=== PATIENT | male | born 1965 | race Caucasian/White ===

== ENCOUNTER 2016-09-09 08:52 | Observation (INO) | payer MEDICARE, OTHER ==
[~2016-09-09] VITALS: Ht 175.3 cm; Wt 88.5 kg
[~2016-09-09 08:52] MED LIST: ASPIR 8181 MG PO; BACTRIM DS TAB1 EACH PO; BRILINTA90 MG PO; CORDARONE 200M200 MG PO; COREG 25MG TAB25 MG PO; IMDUR ER TAB 6060 MG PO; LIPITOR TAB 2020 MG PO; NEURONTIN 300300 MG PO; NEURONTIN 400400 MG PO; NITROSTAT0.4 MG SL; PRILOSEC OTC20 MG PO; PROTONIX40 MG PO; STIOLTO RESPIMAT INH; STRIVERDI RESPIM4 GM INH; THEO-24400 MG PO; VITAMIN D35000 UNIT PO; ZESTRIL 40 MG T40 MG PO
[2016-09-09 10:36] LABS: HEMOGLOBIN 14.9 gm/dl (14.0-17.5); RED BLOOD COUNT 5.12 M/UL (4.20-5.50); WHITE BLOOD COUNT 8.7 K/UL (4.5-11.0)
[2016-09-09 10:52] LABS: BUN/CREATININE RATIO 7 (0-10)
[2016-09-09] MEDS ORDERED: FLOMAX 0.4 MG0.4 MG PO (15:29)
[2016-09-09] MEDS ORDERED: VITAMIN C 500500 MG PO (15:33)
[2016-09-09] MEDS ORDERED: SULFAMETHOXAZO1 EACH PO (15:38)
[2016-09-10 03:46] LABS: HEMOGLOBIN 14.2 gm/dl (14.0-17.5); RED BLOOD COUNT 4.97 M/UL (4.20-5.50); WHITE BLOOD COUNT 6.8 K/UL (4.5-11.0)
[2016-09-10 04:09] LABS: BUN/CREATININE RATIO 15 (0-10)
[2016-09-11] MEDS ORDERED: KEFLEX500 MG PO (10:15)
== END 2016-09-11 16:20 | disposition home or self-care (01) ==
LOC: ER1 08:52 → ZEROF 12:51 → PROG CARE 12:51
PROVIDERS: Emergency Medicine; ADMIT Family Medicine
DX: R55 Syncope and collapse (principal); E87.6 Hypokalemia; E11.9 Type 2 diabetes mellitus without complications; E78.5 Hyperlipidemia, unspecified; I11.9 Hypertensive heart disease without heart failure; I25.10 Atherosclerotic heart disease of native coronary artery without angina pectoris; I25.2 Old myocardial infarction; N12 Tubulo-interstitial nephritis, not specified as acute or chronic; J44.9 Chronic obstructive pulmonary disease, unspecified; I27.2 Other secondary pulmonary hypertension; F17.210 Nicotine dependence, cigarettes, uncomplicated; Z79.82 Long term (current) use of aspirin; Z79.899 Other long term (current) drug therapy; Z95.5 Presence of coronary angioplasty implant and graft; Z88.1 Allergy status to other antibiotic agents
CPT/HCPCS: ECHO; 36415; 70450; 71020; 80053; 81001; 82550; 82553; 82962; 83690; 83735; 83880; 84484; 85025; 85027; 85379; 85610; 85730; 87086; 93005; 93306; 93880; 94640; 94664; 96374; 96375; 96376; 99285; G0378; J0696; J2930; J7030; J7040

== ENCOUNTER → 2016-11-01 | Outpatient (CLI) | payer MEDICARE, OTHER ==
[~2016-11-01] MED LIST changes: +FLOMAX 0.4 MG0.4 MG PO; +HYDROCODON-ACE1 EAC4 PO; +KEFLEX500 MG PO; +LEVAQUIN500 MG PO; +RANEXA500 MG PO; +SULFAMETHOXAZO1 EACH PO; +VITAMIN C 500500 MG PO
[2016-11-01 09:40] LABS: HEMOGLOBIN 14.2 gm/dl (14.0-17.5); RED BLOOD COUNT 4.93 M/UL (4.20-5.50); WHITE BLOOD COUNT 9.3 K/UL (4.5-11.0)
[2016-11-01 09:58] LABS: BUN/CREATININE RATIO 10 (0-10)
== END ==
LOC: LAB 08:27
PROVIDERS: Internal Medicine Cardiovascular Disease
DX: I25.10 Atherosclerotic heart disease of native coronary artery without angina pectoris (principal); I10 Essential (primary) hypertension; R55 Syncope and collapse; I25.5 Ischemic cardiomyopathy
CPT/HCPCS: 36415; 80048; 85025

== ENCOUNTER 2016-11-03 08:56 | Outpatient (CLI) | payer MEDICARE, OTHER ==
[~2016-11-03] VITALS: Ht 177.8 cm; Wt 88.9 kg
[~2016-11-03 08:56] MED LIST changes: -HYDROCODON-ACE1 EAC4 PO; -LEVAQUIN500 MG PO; -RANEXA500 MG PO
[2016-11-03] MEDS ORDERED: RANEXA500 MG PO (09:40)
[2016-11-04] MEDS ORDERED: LEVAQUIN500 MG PO (08:49)
[2016-11-04] MEDS ORDERED: HYDROCODON-ACE1 EAC4 PO (08:58)
== END 2016-11-04 09:35 | disposition home or self-care (01) ==
LOC: CATH 08:56 → PROG CARE 12:50 → CATH 11-04 09:35
DX: I11.0 Hypertensive heart disease with heart failure (principal); I50.22 Chronic systolic (congestive) heart failure; I49.8 Other specified cardiac arrhythmias; I47.1 Supraventricular tachycardia; I25.5 Ischemic cardiomyopathy; I25.10 Atherosclerotic heart disease of native coronary artery without angina pectoris; E78.5 Hyperlipidemia, unspecified; E11.9 Type 2 diabetes mellitus without complications; I73.9 Peripheral vascular disease, unspecified; I25.2 Old myocardial infarction; I47.2 Ventricular tachycardia; Z88.3 Allergy status to other anti-infective agents; Z79.82 Long term (current) use of aspirin; Z79.899 Other long term (current) drug therapy; Z95.5 Presence of coronary angioplasty implant and graft; J30.9 Allergic rhinitis, unspecified; I25.119 Atherosclerotic heart disease of native coronary artery with unspecified angina pectoris; M19.90 Unspecified osteoarthritis, unspecified site; J44.9 Chronic obstructive pulmonary disease, unspecified; R09.02 Hypoxemia; G47.33 Obstructive sleep apnea (adult) (pediatric); Z99.89 Dependence on other enabling machines and devices; I27.2 Other secondary pulmonary hypertension
CPT/HCPCS: 33249; 71010; 93620; 93641; C1721; C1730; C1766; C1777; C1898; J1200; J1644; J2250; J3010; J3370; J7040; J7050; J7070

== ENCOUNTER 2016-11-11 05:31 | Emergency (ER) | payer MEDICARE, OTHER ==
[~2016-11-11 05:31] MED LIST changes: +HYDROCODON-ACE1 EAC4 PO; +LEVAQUIN500 MG PO; +RANEXA500 MG PO
== END 2016-11-11 07:15 | disposition home or self-care (01) ==
LOC: ER1 05:31
DX: L76.32 Postprocedural hematoma of skin and subcutaneous tissue following other procedure (principal); I25.2 Old myocardial infarction; E11.9 Type 2 diabetes mellitus without complications; F17.210 Nicotine dependence, cigarettes, uncomplicated; Z95.5 Presence of coronary angioplasty implant and graft; Z95.810 Presence of automatic (implantable) cardiac defibrillator; Z79.82 Long term (current) use of aspirin; Z88.2 Allergy status to sulfonamides; Z79.899 Other long term (current) drug therapy; Y83.8 Other surgical procedures as the cause of abnormal reaction of the patient, or of later complication, without mention of misadventure at the time of the procedure
CPT/HCPCS: 93005; 99283

== ENCOUNTER 2016-11-11 19:01 | Emergency (ER) | payer MEDICARE, OTHER | END 2016-11-11 21:15 | disposition home or self-care (01) | LOC: ER1 19:01 | DX: G89.18 Other acute postprocedural pain (principal); R07.9 Chest pain, unspecified; I25.10 Atherosclerotic heart disease of native coronary artery without angina pectoris; I25.2 Old myocardial infarction; E11.9 Type 2 diabetes mellitus without complications; E78.5 Hyperlipidemia, unspecified; I10 Essential (primary) hypertension; J44.9 Chronic obstructive pulmonary disease, unspecified; Z95.810 Presence of automatic (implantable) cardiac defibrillator; F17.210 Nicotine dependence, cigarettes, uncomplicated; Z88.2 Allergy status to sulfonamides; Z95.5 Presence of coronary angioplasty implant and graft; Z99.81 Dependence on supplemental oxygen | CPT/HCPCS: 71020; 99284 ==